=== PATIENT | female | born 1990 | race Caucasian/White ===

== ENCOUNTER 2017-01-18 08:49 | Emergency (ER) | payer BC ==
[~2017-01-18] VITALS: Ht 154.9 cm; Wt 64.0 kg
[2017-01-18 08:54] VITALS: TEMP 36.6; Ht 154.9 cm; Wt 64.0 kg
[2017-01-18] MEDS ORDERED: LEVO50TA6 PO (09:32)
[2017-01-18] MEDS ORDERED: BCPILLS PO (09:32)
[2017-01-18] MEDS ORDERED: SODIUM CHLORIDE 0.9% 1000ML 1,000 ML IV STA (09:32)
[2017-01-18 09:47] LABS: BASO % 0.6 %; BASO ABS # 0.04 K/uL (0-0.2); COMPLETE YES; HEMATOCRIT 39.7 % (37-47); IG% 0.1 %; LYMPH % 37.2 %; LYMPH ABS # 2.49 K/uL (1.2-3.4); MEAN CELL VOLUME 82.2 fL (80-100); MEAN CORPUSCULAR HEMOGLOBIN 27.1 pg (25-34); MEAN PLATELET VOLUME 9.7 fL (7.4-10.4); MONO % 7.5 %; NEUT % 53.6 %; PLATELET COUNT 298 K/uL (130-400); RED BLOOD COUNT 4.83 M/uL (4.2-5.4)
[2017-01-18 09:53] LABS: INR 0.9 (0.9-1.1); PARTIAL THROMBOPLASTIN RATIO 1.1
[2017-01-18 09:54] LABS: BLOOD UREA NITROGEN 11 mg/dl (7-18); CALCIUM 8.7 mg/dl (8.5-10.1); CARBON DIOXIDE 25 mmol/L (21-32); CHLORIDE 107 mmol/L (98-107); GLUCOSE 75 mg/dl (70-99); POTASSIUM 3.9 mmol/L (3.5-5.1); SODIUM 138 mmol/L (136-145)
[2017-01-18 09:55] LABS: ALT/SGPT 21 U/L (12-78); AST/SGOT 15 U/L (15-37); BUN/CREATININE RATIO 14.9 (10-20); CREATININE 0.76 mg/dl (0.60-1.20)
[2017-01-18 10:04] LABS: ALB/GLOB RATIO 0.9 (0.9-2); ALKALINE PHOSPHATASE 56 U/L (45-117)
--- NOTE | 2017-01-18 10:34 | DIAGNOSTIC IMAGING REPORT ---
CHEST 2 VIEWS ROUTINE CLINICAL HISTORY: Lightheadedness. Left-sided chest pain. COMPARISON STUDY: No previous studies for comparison. FINDINGS: Pectus excavatum deformity accounts for obscuration of the right heart border. There is no pneumothorax or pleural effusion. Lungs are clear. Cardiac size is normal. Mediastinal contours are otherwise unremarkable. IMPRESSION: 1. No acute cardiopulmonary findings. 2. Pectus excavatum. Electronically signed by: Maciej Knox M.D. 01/18/2017 10:33 AM Dictated Date/Time: 01/18/2017 10:32 AM
[2017-01-18 12:07] LABS: CKMB/CK RATIO 0.7 (0-3.0)
[2017-01-18 12:40] VITALS: BP 117/72; PULSE 81; O2SAT 99
--- NOTE | 2017-01-18 12:45 | EMERGENCY ROOM VISIT NOTE ---
History First contact with patient: 09:08 Chief Complaint: ILLNESS Stated Complaint: SHARP PAIN IN CHEST,LIGHTHEADED,DIZZY Nursing Triage Summary: Pt c/o waking up with sharp pain in her chest "right where my heart is". Pt states the pain comes and goes. Denies pain in triage. Lightheaded, Dizzy. Shakey. History of Present Illness Patient is a 27-year-old white female with past medical history significant for hypothyroidism who presents to the emergency department for evaluation of left- sided chest pain that began about 2 hours ago. Patient reports feeling a sharp pain in her left chest while she was getting ready for work this morning. She describes it as sharp and shooting and at its worst would've rated it a 6/10. She felt weak, slightly short of breath, nauseous, clammy and lightheaded, but still took her dog for a walk. She states that she continued into work, and noted feeling similar chest pain, although not as intense. It comes and goes intermittently and at the present time she rates it a 2/10. She denies any radiation of the pain through to her back or neck, but did feel some numbness in her left arm which has subsequently resolved. Patient reports that she has been feeling well recently, no recent cold or upper respiratory symptoms. No cough or sputum production. No increased pain with coughing, deep breathing or sneezing. She reports similar episode of chest pain about 2 or 3 years ago when she was at home in [place] and her workup was negative. She reports that her thyroid medication has not been changed recently. She is on an oral contraceptive, denies any calf or leg pain or swelling, recent travel or smoking. No personal or family history of DVT or PE. Review of Systems Review of systems as per HPI. All other systems reviewed were negative. 10 systems reviewed. Past Medical/Surgical History Medical Problems: (1) Hypothyroidism The patient does not have any old records at this facility for review. Social History Smoking Status: Never Smoker Alcohol Use: occasionally Marital Status: in relationship Housing Status: lives with significant other Occupation Status: employed Current/Historical Medications Scheduled Control Pills ( Control Pills), 1 TAB PO DAILY Levothyroxine Sodium (Levothyroxine Sodium), 1 TAB PO DAILY Allergies Coded Allergies: No Known Allergies (Unverified , 01/18/17) Physical Exam Vital Signs Date Time Temp Pulse Resp B/P Pulse Ox O2 Delivery O2 Flow Rate FiO2 01/18/17 12:40 81 18 117/72 99 Room Air 01/18/17 11:15 95 18 120/80 99 Room Air 01/18/17 09:46 105 20 129/78 97 Room Air 01/18/17 09:46 103 01/18/17 08:57 99 Room Air 01/18/17 08:54 36.6 108 20 136/91 99 Room Air Physical Exam CONSTITUTIONAL: Patient is a pleasant, well-appearing 27-year-old white female who is awake and alert and in no acute distress. EYES: Pupils equal, round, reactive to light and accommodation. EOMs intact without nystagmus. Sclera are anicteric. ENT: Tympanic membranes intact, with normal landmarks. External canals are clear. Oral and nasopharynx are clear. Mucous membranes are moist, no lesions , tongue and gums appear normal. NECK: No bruits auscultated. Supple without lymphadenopathy. No thyromegaly. No meningeal signs. Full active range of motion without discomfort. CARDIOVASCULAR: Regular rate and rhythm, with normal S1 and S2, no murmur or gallop or rub is heard. No carotid bruits auscultated. No JVD. Peripheral pulses easy to palpable. RESPIRATORY: Breath sounds equal and clear to auscultation without wheezes, rales, or rhonchi heard. Full and equal chest expansion without accessory muscle use or retractions. GI: Bowel sounds are present. Abdomen is soft, nontender, nondistended. No organomegaly. No pulsatile masses. No guarding or rebound. MUSCULOSKELETAL: Full range of motion of extremities x 4 with good strength. No cyanosis, edema, joint tenderness or swelling. No deformity. INTEGUMENTARY: No lesions or rash, normal skin turgor. NEUROLOGICAL: Alert, oriented, and cooperative. Cranial nerves, sensation and strength grossly intact. Pupils round, equal, and react to light, EOMs are full. LYMPH: No lymphadenopathy. Medical Decision & Procedures ER Provider Diagnostic Interpretation: CHEST 2 VIEWS ROUTINE CLINICAL HISTORY: Lightheadedness. Left-sided chest pain. COMPARISON STUDY: No previous studies for comparison. FINDINGS: Pectus excavatum deformity accounts for obscuration of the right heart border. There is no pneumothorax or pleural effusion. Lungs are clear. Cardiac size is normal. Mediastinal contours are otherwise unremarkable. IMPRESSION: 1. No acute cardiopulmonary findings. 2. Pectus excavatum. Laboratory Results 01/18/17 09:10 Red Blood Count 4.83, Mean Corpuscular Volume 82.2, Mean Corpuscular Hemoglobin 27.1, Mean Corpuscular Hemoglobin Concent 33.0, Mean Platelet Volume 9.7, Neutrophils (%) (Auto) 53.6, Lymphocytes (%) (Auto) 37.2, Monocytes (%) (Auto) 7.5, Eosinophils (%) (Auto) 1.0, Basophils (%) (Auto) 0.6, Neutrophils # (Auto) 3.59, Lymphocytes # (Auto) 2.49, Monocytes # (Auto) 0.50, Eosinophils # (Auto) 0.07, Basophils # (Auto) 0.04 01/18/17 09:10 Test 01/18/17 09:10 01/18/17 09:32 01/18/17 09:41 01/18/17 10:11 White Blood Count 6.70 K/uL (4.8-10.8) Red Blood Count 4.83 M/uL (4.2-5.4) Hemoglobin 13.1 g/dL (12.0-16.0) Hematocrit 39.7 % (37-47) Mean Corpuscular Volume 82.2 fL (80-100) Mean Corpuscular Hemoglobin 27.1 pg (25-34) Mean Corpuscular Hemoglobin Concent 33.0 g/dl (32-36) Platelet Count 298 K/uL (130-400) Mean Platelet Volume 9.7 fL (7.4-10.4) Neutrophils (%) (Auto) 53.6 % Lymphocytes (%) (Auto) 37.2 % Monocytes (%) (Auto) 7.5 % Eosinophils (%) (Auto) 1.0 % Basophils (%) (Auto) 0.6 % Neutrophils # (Auto) 3.59 K/uL (1.4-6.5) Lymphocytes # (Auto) 2.49 K/uL (1.2-3.4) Monocytes # (Auto) 0.50 K/uL (0.11-0.59) Eosinophils # (Auto) 0.07 K/uL (0-0.5) Basophils # (Auto) 0.04 K/uL (0-0.2) RDW Standard Deviation 42.2 fL (36.4-46.3) RDW Coefficient of Variation 14.0 % (11.5-14.5) Immature Granulocyte % (Auto) 0.1 % Immature Granulocyte # (Auto) 0.01 K/uL (0.00-0.02) Erythrocyte Sedimentation Rate 21 mm/hr (0-21) Prothrombin Time 10.0 SECONDS (9.0-12.0) Prothromb Time International Ratio 0.9 (0.9-1.1) Activated Partial Thromboplast Time 28.9 SECONDS (21.0-31.0) Partial Thromboplastin Ratio 1.1 Anion Gap 6.0 mmol/L (3-11) Est Creatinine Clear Calc Drug Dose 96.9 ml/min Estimated GFR () 126.4 Estimated GFR (Non- 109.0 BUN/Creatinine Ratio 14.9 (10-20) Calcium Level 8.7 mg/dl (8.5-10.1) Total Bilirubin 0.3 mg/dl (0.2-1) Aspartate Amino Transf (AST/SGOT) 15 U/L (15-37) Alanine Aminotransferase (ALT/SGPT) 21 U/L (12-78) Alkaline Phosphatase 56 U/L (45-117) Total Creatine Kinase 89 U/L (26-192) Creatine Kinase MB 0.6 ng/ml (0.5-3.6) Troponin I < 0.015 ng/ml (0-0.045) Total Protein 7.4 gm/dl (6.4-8.2) Albumin 3.5 gm/dl (3.4-5.0) Globulin 3.9 gm/dl (2.5-4.0) Albumin/Globulin Ratio 0.9 (0.9-2) Thyroid Stimulating Hormone (TSH) 1.420 uIu/ml (0.300-4.500) Creatine Kinase MB Ratio (0-3.0) Bedside D-Dimer 122 ng/mlFEU (0-450) Urine Test NEG (NEG) Medications Administered Medications (Trade) Dose Ordered Sig/Facundo Route Start Time Stop Time Status Last Admin Dose Admin Sodium Chloride (Nss 1000ml) 1,000 ml @ 999 mls/hr Q1H1M STAT IV 01/18/17 09:32 01/18/17 10:32 DC 01/18/17 09:44 999 MLS/HR ECG Indication: chest pain Rate (beats per minute): 96 Rhythm: normal sinus Findings: no acute ischemic change, no ectopy, other (incomplete right bundle branch block) Comparison ECG Date: no prior available ED Course The patient was seen and evaluated as above. She has no old records at this facility for review. IV lock was initiated. EKG was performed and patient was placed on a cardiac cath lab radiology technologist. Chest x-ray was obtained. Patient declined any medications for discomfort while in the emergency department. Laboratory studies performed including CBC with differential, ESR, cardiac enzymes, TSH, CMP and [id number] d-dimer. Urine dip and test were also performed. Chest x-ray was obtained. Laboratory studies were largely unremarkable. Her white count was not elevated. She is not anemic. Sedimentation rate is normal. Coags are unremarkable. Electrolytes and liver functions are within normal limits. Cardiac enzymes are negative 1. TSH indicates a euthyroid state. D-dimer was performed and was negative, given this and lack of risk factors, further workup was not pursued. Urine dip was clear and test was negative. Chest x- ray did not reveal any acute cardiopulmonary findings. The patient was reassessed and made aware of the results of her workup. Conservative care measures were discussed. Differential diagnosis includes acute myocardial infarction, acute coronary syndrome, myocarditis, pericarditis , pulmonary embolism, pneumonia, pneumothorax, cardiomyopathy, congestive heart failure, anemia, COPD/asthma exacerbation, musculoskeletal, anxiety, costochondritis, among others. At this point, it was felt that the patient could be discharged to home, with close follow up with her primary care physician. She expressed understanding of this and was agreeable. She was discharged home in good condition. Medical Decision See ED Course. Impression Primary Impression: Left sided chest pain Departure Information Referrals Valerie ALEGRIA M.D. (PCP) Patient Instructions [facility] [employer] Additional Instructions Ibuprofen(Motrin, Advil) may be used for fever or pain. Use 600mg every six hours as needed. Take with food. Avoid using more than 2400mg in a 24 hour period. Do not use 2400mg per day for more than three consecutive days without physician direction. Prolonged inappropriate use can lead to stomach upset or ulcers. (AND/OR) Acetaminophen(Tylenol) may be used for fever or pain. Use 1000mg every six hours as needed. Avoid using more than 3000mg in a 24 hour period. Rest and drink plenty of fluids as tolerated. Continue current medications. Avoid strenuous activities and anything that worsens your pain. Resume normal activities once your symptoms resolve. Return to the ER immediately for worsening or persistent chest pain, abdominal pain, vomiting, fevers, chest pains, difficulty breathing, worsening of your condition, or as needed. Follow up with your primary physician in 2-3 days for a recheck of your current condition.
== END 2017-01-18 12:50 | disposition home or self-care (01) ==
LOC: C.EDB 08:50 → C.EDA 12:50
DX: R07.9 Chest pain, unspecified (principal); E03.9 Hypothyroidism, unspecified; Z79.3 Long term (current) use of hormonal contraceptives; Z79.899 Other long term (current) drug therapy

== ENCOUNTER → 2017-08-01 | Outpatient (CLI) | payer BC ==
[~2017-08-01] MED LIST: BCPILLS PO; LEVO50TA6 PO
[2017-08-01 09:37] LABS: BASO % 0.5 %; BASO ABS # 0.03 K/uL (0-0.2); COMPLETE YES; EOS % 2.8 %; HEMATOCRIT 40.6 % (37-47); IG% 0.2 %; LYMPH % 37.3 %; LYMPH ABS # 2.29 K/uL (1.2-3.4); MEAN CELL VOLUME 82.7 fL (80-100); MEAN CORPUSCULAR HEMOGLOBIN 27.9 pg (25-34); MEAN CORPUSCULAR HGB CONC 33.7 g/dl (32-36); MEAN PLATELET VOLUME 10.7 fL (7.4-10.4); NEUT % 52.2 %; PLATELET COUNT 273 K/uL (130-400); RED BLOOD COUNT 4.91 M/uL (4.2-5.4); WHITE BLOOD COUNT 6.14 K/uL (4.8-10.8)
[2017-08-01 09:56] LABS: ALT/SGPT 24 U/L (12-78); BLOOD UREA NITROGEN 11 mg/dl (7-18); BUN/CREATININE RATIO 14.4 (10-20); CALCIUM 9.3 mg/dl (8.5-10.1); CARBON DIOXIDE 21 mmol/L (21-32); CHLORIDE 107 mmol/L (98-107); CHOLESTEROL 174 mg/dl (0-200); CREATININE 0.76 mg/dl (0.60-1.20); GLUCOSE 84 mg/dl (70-99); POTASSIUM 3.7 mmol/L (3.5-5.1); SODIUM 136 mmol/L (136-145); TRIGLYCERIDES 142 mg/dl (0-150); VERY LOW DENSITY LIPOPROT CALC 28 mg/dl
[2017-08-01 10:04] LABS: ALB/GLOB RATIO 0.9 (0.9-2); ALKALINE PHOSPHATASE 54 U/L (45-117); AST/SGOT 15 U/L (15-37); CHOLESTEROL/HDL RATIO 2.7; HDL CHOLESTEROL 64 mg/dl; LDL CHOLESTEROL CALCULATED 82 mg/dl
== END | disposition home or self-care (01) ==
LOC: C.LAB1850 07:48
PROVIDERS: ATTEND Physician Assistant
DX: Z00.00 Encounter for general adult medical examination without abnormal findings (principal); E03.9 Hypothyroidism, unspecified

== ENCOUNTER → 2017-10-30 | Outpatient (CLI) | payer BC | END | disposition home or self-care (01) | LOC: C.LAB1850 08:48 | PROVIDERS: ATTEND Physician Assistant | DX: E03.9 Hypothyroidism, unspecified (principal) ==